=== PATIENT | female | born 1965 | race African-American/Black ===

== ENCOUNTER 2018-12-11 01:00 | Observation (INO) | payer OTHER ==
[~2018-12-11] VITALS: Ht 162.6 cm; Wt 78.0 kg
[2018-12-11 01:08] VITALS: BP 152/70
[2018-12-11] MEDS ORDERED: LATUDA60 MG PO (01:12)
[2018-12-11] MEDS ORDERED: NEURONTIN 300300 M1 PO (01:12)
[2018-12-11 01:13] LABS: URINE BLOOD 1+ (Negative); URINE CLARITY CLEAR; URINE COLOR YELLOW; URINE GLUCOSE-RANDOM NEGATIVE (Negative); URINE KETONES NEGATIVE (Negative); URINE LEUKOCYTES-REFLEX NEGATIVE (Negative); URINE NITRITE-REFLEX NEGATIVE (Negative); URINE PROTEIN NEGATIVE (Negative); URINE SPECIFIC GRAVITY >= 1.030 (1.005-1.030); URINE UROBILINOGEN 0.2 E.U./dl (0.2-1.0)
[2018-12-11] MEDS ORDERED: PROGESTERONE100 MG PO (01:13)
[2018-12-11] MEDS ORDERED: WELLBUTRIN XL300 MG PO (01:13)
[2018-12-11 01:14] LABS: URINE BILIRUBIN 1+ (Negative)
[2018-12-11] MEDS ORDERED: AMBIEN 10 MG TA10 MG PO (01:14)
[2018-12-11] MEDS ORDERED: PREMPRO 0.45-11 EACH PO (01:14)
[2018-12-11] MEDS ORDERED: KLONOPIN1 MG PO (01:15)
[2018-12-11 01:17] LABS: ICTOTEST (BILI CONFIRMATORY) Negative (Negative)
[2018-12-11 01:41] LABS: CASTS None Seen /LPF (None Seen); MUCUS 4-6 Moderate strn/LPF (None Seen); SQUAMOUS >10 Many /LPF (0-3)
[2018-12-11 01:42] LABS: CRYSTALS None Seen /LPF (None Seen); URINE RBC 3-10 Few /HPF (0-2); URINE WBC-REFLEX 6-15 Few /HPF (0-5)
[2018-12-11 02:16] LABS: ABSOLUTE BASOPHILS 0.1 thou/uL (0.0-0.2); ABSOLUTE LYMPHOCYTES 1.1 thou/uL (0.8-5.3); ABSOLUTE MONOCYTES 0.5 thou/uL (0.0-1.2); BASOPHILS 0.5 %; EOSINOPHILS 0.5 %; HEMOGLOBIN 11.9 gm/dL (12.0-15.0); LYMPHOCYTES 11.5 %; MCH 30.4 pg (26.0-34.0); MCHC 33.2 g/dL (28.0-37.0); MCV 91.6 fL (80.0-100.0); MONOCYTES 5.5 %; MPV 7.2 fl. (7.2-11.1); NUCLEATED RBCS 0 /100WBC; PLATELET COUNT* 274 thou/uL (150-400); RBC 3.93 mil/uL (4.20-5.00); RDW-CV 15.1 % (10.5-14.5); WBC 9.8 thou/uL (4.0-11.0)
[2018-12-11 02:26] LABS: CALCIUM 9.2 mg/dL (8.5-10.1); CREATININE 0.9 mg/dL (0.6-1.3); POTASSIUM 3.3 mmol/L (3.5-5.1)
[2018-12-11 02:31] LABS: ALBUMIN 3.6 g/dL (3.4-5.0); TOTAL BILIRUBIN 0.9 mg/dL (<0.1-1.0); TOTAL PROTEIN 6.9 g/dL (6.4-8.2)
[2018-12-11 04:55] VITALS: BP 144/79
[2018-12-11 05:24] VITALS: BP 160/84
[2018-12-11 07:25] VITALS: BP 152/79
[2018-12-11] MEDS ORDERED: AUGMENTIN 875-1 EACH PO (14:50)
[2018-12-11] MEDS ORDERED: ZOFRAN ODT4 MG PO (14:50)
[2018-12-11] MEDS ORDERED: NORCO 5-325 TA1 EAC1 PO (15:02)
[2018-12-11 15:04] VITALS: BP 152/79
[2018-12-11] MEDS ORDERED: SENNA8.6 MG PO (15:55)
[2018-12-11 16:25] VITALS: BP 152/79
== END 2018-12-11 16:26 | disposition home or self-care (01) ==
LOC: M.ERS 01:00 → M.ORTHSURG 04:25 → M.TBA-ER 04:25 → M.ORTHSURG 04:25
PROVIDERS: Emergency Medicine; ADMIT Internal Medicine
DX: K81.0 Acute cholecystitis (principal); R74.0 Nonspecific elevation of levels of transaminase and lactic acid dehydrogenase [LDH]; K59.09 Other constipation; E87.6 Hypokalemia; F41.9 Anxiety disorder, unspecified; F32.9 Major depressive disorder, single episode, unspecified; Z98.890 Other specified postprocedural states; G47.00 Insomnia, unspecified

== ENCOUNTER → 2020-09-23 | Outpatient (CLI) | payer OTHER ==
[~2020-09-23] MED LIST: AMBIEN 10 MG TA10 MG PO; AUGMENTIN 875-1 EACH PO; HALCION0.25 MG PO; KLONOPIN1 MG PO; LATUDA60 MG PO; NEURONTIN 300300 M1 PO; NEURONTIN300 MG PO; NORCO 5-325 TA1 EAC1 PO; PREMPRO 0.45-11 EACH PO; PROGESTERONE100 MG PO; SENNA PLUS TAB1 EACH PO; SENNA8.6 MG PO; ST. JOHN'S WOR300 MG PO; WELLBUTRIN XL300 MG PO; ZOFRAN ODT4 MG PO
[2020-09-23 09:36] LABS: ABSOLUTE BASOPHILS 0.1 thou/uL (0.0-0.2); ABSOLUTE EOSINOPHILS 0.2 thou/uL (0.0-0.7); ABSOLUTE LYMPHOCYTES 1.5 thou/uL (0.8-5.3); ABSOLUTE MONOCYTES 0.4 thou/uL (0.0-1.2); ABSOLUTE NEUTROPHILS 6.6 thou/uL (1.6-8.1); BASOPHILS 0.7 %; HEMATOCRIT 37.4 % (37.0-47.0); HEMOGLOBIN 12.6 gm/dL (12.0-15.0); LYMPHOCYTES 16.8 %; MCH 31.3 pg (26.0-34.0); MCHC 33.7 g/dL (28.0-37.0); MCV 93.1 fL (80.0-100.0); MONOCYTES 4.8 %; MPV 6.1 fl. (7.2-11.1); NUCLEATED RBCS 0 /100WBC; PLATELET COUNT* 344 thou/uL (150-400); POLYS 75.7 %; RBC 4.02 mil/uL (4.20-5.00); RDW-CV 13.2 % (10.5-14.5); WBC 8.7 thou/uL (4.0-11.0)
[2020-09-23 09:45] LABS: URINE BILIRUBIN NEGATIVE (Negative); URINE BLOOD TRACE (Negative); URINE CLARITY CLEAR; URINE COLOR YELLOW; URINE GLUCOSE-RANDOM NEGATIVE (Negative); URINE KETONES NEGATIVE (Negative); URINE LEUKOCYTES-REFLEX NEGATIVE (Negative); URINE NITRITE-REFLEX NEGATIVE (Negative); URINE PROTEIN NEGATIVE (Negative); URINE SPECIFIC GRAVITY 1.015 (1.005-1.030); URINE UROBILINOGEN 0.2 E.U./dl (0.2-1.0)
[2020-09-23 09:48] LABS: ALBUMIN 4.4 g/dL (3.4-5.0); ALKALINE PHOSPHATASE 93 U/L (46-116); ANION GAP 10 mmol/L (7-16); BUN 12 mg/dL (7-18); CALCIUM 9.8 mg/dL (8.5-10.1); CHLORIDE 101 mmol/L (98-107); CHOLESTEROL 239 mg/dL (<200); CO2 31 mmol/L (21-32); CREATININE 0.9 mg/dL (0.6-1.3); GLUCOSE 96 mg/dL (70-99); HDL CHOLESTEROL 62 mg/dL (>40); LDL CHOLESTEROL 155 mg/dL (<100); POTASSIUM 3.5 mmol/L (3.5-5.1); SERUM ASSESSMENT Clear; SGOT 16 U/L (15-37); SGPT 26 U/L (30-65); SODIUM 142 mmol/L (136-145); TC:HDL 3.9 Ratio (Not establshd); TOTAL BILIRUBIN 0.4 mg/dL (<0.1-1.0); TOTAL PROTEIN 7.8 g/dL (6.4-8.2); TRIGLYCERIDE 114 mg/dL (<150); VLDL 23 mg/dL (<40)
== END ==
LOC: M.RAD 08:30
PROVIDERS: ATTEND Family Medicine
DX: Z12.31 Encounter for screening mammogram for malignant neoplasm of breast (principal)

== ENCOUNTER 2021-02-09 19:30 | Emergency (ER) | payer OTHER ==
[~2021-02-09] VITALS: Ht 162.6 cm; Wt 77.1 kg
[2021-02-09 21:38] LABS: URINE BILIRUBIN NEGATIVE (Negative); URINE BLOOD NEGATIVE (Negative); URINE CLARITY CLEAR; URINE COLOR YELLOW; URINE GLUCOSE-RANDOM NEGATIVE (Negative); URINE KETONES NEGATIVE (Negative); URINE LEUKOCYTES-REFLEX NEGATIVE (Negative); URINE NITRITE-REFLEX NEGATIVE (Negative); URINE PROTEIN NEGATIVE (Negative); URINE SPECIFIC GRAVITY 1.015 (1.005-1.030); URINE UROBILINOGEN 0.2 E.U./dl (0.2-1.0)
[2021-02-09 23:04] VITALS: BP 141/96
--- NOTE | 2021-02-10 09:58 | EKG ---
[place] [address] ELECTROCARDIOGRAM REPORT Name: TING FERRARO Room: [facility]#: [id number] Admission: 02/09/21 Attend Phys: Discharge: 02/09/21 Date of : 61 Date of Service: 02/09/212211 Report #: [id number] THIS REPORT FOR: //name// [facility] ED Test Date: 2021-02-09 Test Time: 22:12:05 Pat Name: TING FERRARO Department: Room: Gender: F [employer]er: [place] : 1965 Requested By: Suni Johnson Order Number: [id number] MD: Heath Clark Measurements Intervals Richardson Rate: 66 P: 70 OH: 190 QRS: 23 QRSD: 95 T: 43 QT: 386 QTc: 405 Interpretive Statements Sinus rhythm Left atrial enlargement Anteroseptal infarct, age indeterminate, possible Baseline wander in lead(s) II,III,aVL,aVF No previous ECG available for comparison Electronically Signed On 02-10-2021 9:58:23 CDT by Heath Clark [email or web address] <ELECTRONICALLY SIGNED> By: Heath Clark MD, FAC 02/10/2158 11 11 Heath Clark MD, [facility] /EPI
== END 2021-02-09 23:05 | disposition home or self-care (01) ==
LOC: M.ERS 19:30
PROVIDERS: Emergency Medicine
DX: J34.89 Other specified disorders of nose and nasal sinuses (principal); Z20.822 Contact with and (suspected) exposure to COVID-19; I10 Essential (primary) hypertension; Z98.890 Other specified postprocedural states; Z98.51 Tubal ligation status; Z90.49 Acquired absence of other specified parts of digestive tract

== ENCOUNTER → 2021-04-06 | Outpatient (CLI) | payer OTHER ==
[2021-04-06 08:48] LABS: ABSOLUTE BASOPHILS 0.1 thou/uL (0.0-0.2); ABSOLUTE EOSINOPHILS 0.1 thou/uL (0.0-0.7); ABSOLUTE LYMPHOCYTES 1.4 thou/uL (0.8-5.3); ABSOLUTE MONOCYTES 0.5 thou/uL (0.0-1.2); ABSOLUTE NEUTROPHILS 5.7 thou/uL (1.6-8.1); BASOPHILS 0.7 %; EOSINOPHILS 1.1 %; HEMATOCRIT 38.6 % (37.0-47.0); HEMOGLOBIN 13.1 gm/dL (12.0-15.0); LYMPHOCYTES 17.8 %; MCHC 33.9 g/dL (28.0-37.0); MCV 91.5 fL (80.0-100.0); MONOCYTES 5.9 %; MPV 6.5 fl. (7.2-11.1); NUCLEATED RBCS 0 /100WBC; PLATELET COUNT* 314 thou/uL (150-400); POLYS 74.5 %; RBC 4.22 mil/uL (4.20-5.00); RDW-CV 13.9 % (10.5-14.5); WBC 7.7 thou/uL (4.0-11.0)
[2021-04-06 09:40] LABS: ALBUMIN 4.3 g/dL (3.4-5.0); CALCIUM 9.8 mg/dL (8.5-10.1); POTASSIUM 3.2 mmol/L (3.5-5.1); TOTAL BILIRUBIN 0.3 mg/dL (<0.1-1.0); TOTAL PROTEIN 7.6 g/dL (6.4-8.2)
== END ==
LOC: M.LAB 08:15
PROVIDERS: ATTEND Family Medicine
DX: D64.9 Anemia, unspecified (principal)